=== PATIENT | male | born 1940 | race Caucasian/White ===

== ENCOUNTER 2019-08-11 21:39 | Emergency (ER) | payer OTHER ==
[2019-08-11] MEDS ORDERED: Ondansetron PF 4 MG/2 ML Vial ONE (22:20)
[2019-08-11] MEDS ORDERED: Ketorolac Tromethamine 30 MG/ML VIAL ONE (22:20)
[2019-08-11] MEDS ORDERED: Cyclobenzaprine 10 MG TAB ONE (23:21)
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
== END 2019-08-12 01:08 | disposition home or self-care (01) ==
LOC: ERS 21:39
DX: S39.012A Strain of muscle, fascia and tendon of lower back, initial encounter (principal); D64.9 Anemia, unspecified; I49.9 Cardiac arrhythmia, unspecified; I48.91 Unspecified atrial fibrillation; F41.9 Anxiety disorder, unspecified; V89.2XXA Person injured in unspecified motor-vehicle accident, traffic, initial encounter
CPT/HCPCS: 72100; 72170; 96374; 96375; J1885; J2405